=== PATIENT | male | born 1990 | race Caucasian/White ===

== ENCOUNTER 2024-02-22 11:11 | Emergency (ER) | payer BC, OTHER ==
[~2024-02-22] VITALS: Ht 170.2 cm; Wt 90.0 kg
[2024-02-22 11:19] VITALS: BP 159/99; PULSE 86; RESP 19; O2SAT 98
== END 2024-02-22 12:16 | disposition left against medical advice (07) ==
LOC: ER 11:11
DX: Z02.89 Encounter for other administrative examinations (principal); Z53.21 Procedure and treatment not carried out due to patient leaving prior to being seen by health care provider